=== PATIENT | female | born 2000 | race Caucasian/White ===

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

== ENCOUNTER → 2020-11-04 13:54 | Outpatient (CLI) | payer BC, OTHER, SELFPAY ==
[2020-11-04 14:44] LABS: HCG,Quantitative 526 mIU/ml (0-5.42)
== END ==
PROVIDERS: Visit Provider Obstetrics & Gynecology
DX: Z34.90 Encounter for supervision of normal pregnancy, unspecified, unspecified trimester (principal)
CPT/HCPCS: 36415; 84702

== ENCOUNTER 2020-11-04 14:28 | Emergency (ER) | payer BC, OTHER, SELFPAY ==
[2020-11-04 14:29] VITALS: BP 130/78; PULSE 67; RESP 18; TEMP 36.8; O2SAT 97; BMI 25.3
--- NOTE | 2020-11-04 15:00 | HMH.EDPREG ---
ED Disposition Clinical Impression: Threatened miscarriage Disposition: Home, Self-Care Condition on Discharge: Good Instructions: DI for Threatened Additional Instructions: Follow-up with your mortgage loan underwriter for reevaluation within the next several days. Return to the emergency department if you saturate more than 2 pads per hour or develop fever, vomiting, severe abdominal pain, other acute new concerns. Maintain pelvic rest until cleared by mortgage loan underwriter. - Critical Care Critical Care Time: No Attestation: On 11/04/20, the high probability of a clinically significant, sudden or life threatening deterioration of the following system(s) required my full and direct attention, intervention and personal management. The time I documented below is in addition to time spent performing reported procedures but includes the following listed in this critical care notation. Medical Decision Making - Medical Records Medical records reviewed: Yes: I reviewed the patient's medical records. - Henrry Inquiry Pt receiving controlled substance: No Vital Signs: 11/04/20 14:29 Temperature 98.3 F Temperature Source Oral Pulse Rate [Right] 67 Respiratory Rate 18 Blood Pressure [Right Arm] 130/78 Blood Pressure Mean [Right Arm] 95 02 Sat by Pulse Oximetry 97 Oxygen Delivery Method Room Air Medical Decision Narrative: Patient with hCG below discriminatory zone, ultrasound would not be able to detect anything at this level. She has no abdominal pain, low suspicion for ectopic . Appropriate for further outpatient management and follow-up with OB. Patient agreeable to following up with her mortgage loan underwriter within the next several days for reevaluation. I did inform the patient that this unfortunately seems like this may be a threatened miscarriage with her very low hCG at 2-1/2 months . Encouraged to return if she develops any symptomology or if bleeding becomes significantly worse, saturating more than 2 pads per hour. Advised pelvic rest until cleared by OB. HPI - General Chief complaint: OB/Uterine Contractions Stated complaint: possible miscarriage Time Seen by Provider: 11/04/20 15:00 Mode of Arrival: Family Vehicle Limitations: No Limitations Description of Symptoms (Recalled from ER Triage Doc. by RN): Patient reports she is concerned she is having a possible miscarriage. Patient reports she is at least 4 weeks . Patient reports she has been spot bleeding in the last 24 hours. Patient denies the urge to push. Patient reports she had blood work at her OBGYN this AM but does not know the results. Patient denies N/V - History of Present Illness HPI Narrative: This is a 20-year-old female who presents to the emergency department for concerns of miscarriage. Patient's last period was August 16 through the . She started spotting yesterday and had some positive home test. She went to her primary care doctor's office today who ordered an hCG. Patient continued spotting, so presents here. We were able to obtain the results of the hCG which is 526. No abdominal pain, fevers, vomiting, urinary symptoms. No complications from her previous . : No Date of Last Menstrual Period: 08/08/20 - Related Data Para: 1 Allergies Allergy/AdvReac Type Severity Reaction Status Date / Time shrimp Allergy Severe Anaphylaxis Verified 10/20/20 14:49 povidone-iodine Allergy Unknown Unknown Verified 10/20/20 14:49 [From Betadine] allergy reaction soap [From Betadine] Allergy Unknown Unknown Verified 10/20/20 14:49 allergy reaction [facility] History - Hepatitis A Screen Drug use history?: No High risk sexual behaviors?: No History of sexually transmitted infection?: No Currently employed?: No Childcare worker?: No Do you have indoor plumbing?: Yes Do you have electricity?: Yes Attestation statement:: This patient has been screened for Hepatiti
[2020-11-04 15:15] VITALS: BP 118/71; PULSE 66; RESP 18; TEMP 36.8; O2SAT 98
== END 2020-11-04 15:24 | disposition home or self-care (01) ==
PROVIDERS: Emergency Provider Emergency Medicine; PCP Family Medicine
DX: O20.0 Threatened abortion (principal); F41.8 Other specified anxiety disorders; E03.9 Hypothyroidism, unspecified
CPT/HCPCS: 99281

== ENCOUNTER → 2020-11-06 14:05 | Outpatient (CLI) | payer BC, OTHER, SELFPAY ==
[2020-11-06 15:21] LABS: HCG,Quantitative 87 mIU/ml (0-5.42)
== END ==
PROVIDERS: PCP Family Medicine; Visit Provider Obstetrics & Gynecology
DX: Z34.90 Encounter for supervision of normal pregnancy, unspecified, unspecified trimester (principal)
CPT/HCPCS: 36415; 84702

== ENCOUNTER → 2020-11-11 14:26 | Outpatient (CLI) | payer BC, OTHER, SELFPAY ==
[2020-11-11 14:46] LABS: Basophils # 0.1 K/mm3 (0-0.2); Basophils % 0.9 % (0.1-2.0); Eosinophils # 0.2 K/mm3 (0.0-0.4); Eosinophils % 3.6 % (0.1-12.0); Hematocrit 42.1 % (37.0-47.0); Hemoglobin 14.3 g/dL (12.2-16.2); Lymphocytes # 1.9 K/mm3 (0.7-4.5); Mean Corpuscular HGB Conc 33.9 g/dL (31.8-35.4); Mean Corpuscular Hemoglobin 31.1 pg (27.0-31.2); Mean Corpuscular Volume 91.8 fl (81-99); Monocytes # 0.3 K/mm3 (0.1-1.0); Monocytes % 5.5 % (1.7-9.3); Neutrophils # 3.7 K/mm3 (1.8-7.8); Platelet Count 117 K/mm3 (142-424); Red Blood Count 4.59 M/mm3 (4.20-5.40); White Blood Count 6.2 K/mm3 (4.5-13.0)
[2020-11-11 15:18] LABS: Urine Pregnancy, HCG Qual. Negative (Negative)
[2020-11-11 16:16] LABS: Anion Gap 12.5 mEq/L (5-15); Blood Urea Nitrogen 9 mg/dl (7-17); Carbon Dioxide 26 mmol/L (22.0-30.0); Chloride 108 mmol/L (98-107); Estimated Glomerular Filt Rate 127 ml/min (>60); GFR (African American) 154 ML/MIN (>60); Glucose 84 mg/dl (74-100); Potassium 4.5 mmoL/L (3.5-5.1); Sodium 142 mmol/L (136-145)
== END ==
PROVIDERS: Visit Provider Surgery
DX: Z01.812 Encounter for preprocedural laboratory examination (principal); Z11.52 Encounter for screening for COVID-19; L02.214 Cutaneous abscess of groin
CPT/HCPCS: 36415; 80048; 81025; 85025; U0003

== ENCOUNTER 2020-11-12 07:44 | Day surgery (SDC) | payer BC, OTHER, SELFPAY ==
[2020-11-09 10:57] VITALS: BMI 25.3
[2020-11-12] VITALS (9 sets, daily range): BP systolic 105–139; BP diastolic 60–79; PULSE 64–88; RESP 12–18; TEMP 36.2–37.1; O2SAT 95–100
--- NOTE | 2020-11-12 08:18 | P.PN_ITS ---
[facility] Anesthesia Checklist - Patient Identification Patient Identification: Arm Band - Structural Data Admitted From: Home Planned Operative Procedure/s: I&D Right Groin Cyst/Abscess Consent for Planned Operative Procedure(s) Verified: Yes Verified Documents: Surgical Consent, History and Physical - NPO Status Verified Time NPO: 00:00 - Additional verifications Anesthesia Reactions: No Hx Blood Transfusions: No Blood Transfusion Reaction: No - Airway Assessment C-Spine Mobility Assessed: Yes (mp2) TMJ Mobility Assessed: Yes Dentition: Good Dentition - Neurological Assessment Level of Consciousness: Awake, Alert - Anesthesia Plan Anesthesia Risk discussed: Yes Anesthesia Plan: Verified ASA Class: I Anesthesia Type: General [facility] History I have reviewed the patient's past medical history: Yes Medical History: Reports:: Anxiety, Depression Denies:: Cancer, Diabetes Mellitus Type 1, Diabetes Mellitus Type 2, Internal Pacemaker, MRSA, Seizures *Have you ever received a pneumonia vaccine?: No *Have you received a flu vaccine this season?: No Other Medical History: Reports: Hypothyroidism, Other. Denies: Blood Transfusion Reaction Anesthesia experience/problems:: nac Laterality Cases: Bilateral: Myringotomy (Ear Tubes), Tonsillectomy Other Surgeries: Yes: . No: Pacemaker Amputation: No Fractures: No - *Social History Last grade of school completed: High school graduate Smoking Status: Current every day smoker Tobacco Type: cigarettes # Packs/Day (cigarettes): 1 Alcohol Intake: never Alcohol Intake Frequency:: holidays/special occasions only Substance Use Type: marijuana *Occupational Status:: employed Housing: house Household Members: family *Travel in the last 8 weeks: None - Psychiatric History Pschychiatric History:: Reports:: Anxiety, Depression Family Hx:: Cancer, Hypertension, Stroke, Anemia, Asthma
--- NOTE | 2020-11-12 09:32 | HMH.OPNOTE ---
Date of procedure: 11/12/20 Pre-op Diagnosis:: Right groin abscess Post-op Diagnosis:: Same Procedure performed:: Incision and drainage/debridement of right groin abscess Surgeon:: Mainor Claros MD SOFTWARE DEVELOPER CONSULTANT:: Antonio Rose Anesthesia: LMA Estimated blood loss (mL): 10 Operative findings:: 4 small right groin abscess sites projecting through the shallow subcutaneous tissue Operative note:: After informed consent was obtained the patient was taken to the operating room and placed in the supine position. General anesthesia with laryngeal mask airway was achieved. Her right groin was prepped and draped in sterile fashion. After infiltration with local anesthetic small elliptical incisions were made around 4 small shallow abscess sites. The subcutaneous tissue was dissected with electrocautery. The underlying tissue was carefully debrided. Electrocautery was utilized to achieve hemostasis and the 4 small wounds were packed with dry gauze. She was transferred to recovery in stable condition after removal of her laryngeal mask airway. Condition: stable Disposition: PACU Specimens:: None Complications:: No immediate
--- NOTE | 2020-11-12 09:41 | HMH.ANESI ---
[facility] Anesthesia Record Part I Intake, IV Amount: 1,200 Estimated blood loss (mL): 0 Urine output (mL): 0 Blood Products used (#): none Blood Pressure: 139/79 SaO2: 95 Pulse Rate: 81 Respiratory Rate: 12 Temperature: 98.7 F Patient is:: Awake, Stable Stable to PACU at:: 09:40
[2020-11-17 07:19] VITALS: BP 120/63; PULSE 64; TEMP 37.1
--- NOTE | 2020-11-17 07:19 | P.PN_ITS ---
[facility] Anesthesia Record Part II Discharge Time: 10:10 Destination: Surgical Day Care (OP Surgery) PACU nurse assessment reviewed?: Yes Patient Condition:: Good Anesthesia Complications:: None Swallowing reflex intact?: Yes Cyanosis?: No Blood Pressure: 120/63 Pulse Rate: 64 Temperature: 98.7 F Mental Status: Alert & Oriented Pain level:: 0 Nausea and/or vomitting:: None Intake, IV Amount: 0
== END 2020-11-12 10:41 | disposition home or self-care (01) ==
LOC: OR 07:47
PROVIDERS: PCP Family Medicine; Visit Provider Surgery
PROC: (CPT 10061; principal; 2020-11-12 09:30)
DX: L02.214 Cutaneous abscess of groin (principal); F41.9 Anxiety disorder, unspecified; F32.9 Major depressive disorder, single episode, unspecified; E03.9 Hypothyroidism, unspecified; Z96.22 Myringotomy tube(s) status; Z80.9 Family history of malignant neoplasm, unspecified; Z82.49 Family history of ischemic heart disease and other diseases of the circulatory system; Z82.3 Family history of stroke; Z82.5 Family history of asthma and other chronic lower respiratory diseases
CPT/HCPCS: 10061; 96374; J2405

== ENCOUNTER 2021-07-04 01:31 | Emergency (ER) | payer OTHER, SELFPAY ==
[2021-07-04 01:39] VITALS: BP 138/77; PULSE 108; RESP 18; TEMP 36.8; O2SAT 100; BMI 23.5
--- NOTE | 2021-07-04 02:03 | HMH.EDGENADL ---
ED Disposition Clinical Impression: Cellulitis Disposition: Home, Self-Care Condition on Discharge: Fair Instructions: Cellulitis, DI for Skin Abscess Prescriptions: clindamycin HCL [Clindamycin HCl] 450 mg PO TID 5 Days #23 cap Transmission Status: Received by [id number] Referrals: Lavell Khanna MD [Primary Care Provider] - - Critical Care Critical Care Time: No Attestation: On , the high probability of a clinically significant, sudden or life threatening deterioration of the following system(s) required my full and direct attention, intervention and personal management. The time I documented below is in addition to time spent performing reported procedures but includes the following listed in this critical care notation. Medical Decision Making - Henrry Inquiry Pt receiving controlled substance: No Vital Signs: 07/04/21 01:39 Temperature 98.2 F Temperature Source Oral Pulse Rate [Right Brachial] 108 H Respiratory Rate 18 Blood Pressure [Right Arm] 138/77 Blood Pressure Mean [Right Arm] 97 Blood Pressure Source [Right Arm] Automatic Cuff Blood Pressure Position [Right Arm] Sitting 02 Sat by Pulse Oximetry 100 Oxygen Delivery Method Room Air Medical Decision Narrative: 20 yo female presents for evaluation of wounds after getting home tattoo on LUE. Neurovascularly intact. DDx includes but not limited to cellulitis, abscess, erysipelas. HDS, NAD, well appearing. No systemic symptoms of infection. Scant active drainage that is not clearly purulent. bedside ultrasound of wounds did not reveal large fluid collection of abscess. Likely cellulitis given erythema, tenderness, induration, hx of recent skin trauma with tattoo. Will rx clindamycin tid 5 days. Advised to f/u with PCP for reevaluation of wounds within 1 week. Given strict ED return precautions. General Adult HPI - General Chief complaint: Skin/Abscess/Foreign Body Stated complaint: ? infected tatoo on left arm Time Seen by Provider: 07/04/21 01:55 Mode of Arrival: Family Vehicle Limitations: No Limitations Description of Symptoms (Recalled from ER Triage Doc. by RN): left shoulder with multiple abscessed areas after she had a tattoo completed - History of Present Illness HPI narrative: 20 yo female w/ hx of recurrent boils presents for evaluation of wound check. Patient had tattoo done by anime artist in home environment (not in tattoo parlor) but with reported sterile materials approximately 1 week ago along her left shoulder and arm. She noticed wounds that were red and rounded and intermittently draining yellow or bloody drainage from them two days ago. Her friend told her to come to ED for evaluation. She states the wounds hurt. denies other wounds. States she has tried popping some of the wounds with resultant drainage. - Related Data Previous Rx's Medication Instructions Recorded clindamycin HCL [Clindamycin HCl] 450 mg PO TID 5 Days #23 cap 07/04/21 Allergies Allergy/AdvReac Type Severity Reaction Status Date / Time shrimp Allergy Severe Anaphylaxis Verified 12/08/20 14:11 povidone-iodine Allergy Unknown Unknown Verified 12/08/20 14:11 [From Betadine] allergy reaction soap [From Betadine] Allergy Unknown Unknown Verified 12/08/20 14:11 allergy reaction [facility] History - Hepatitis A Screen Drug use history?: No High risk sexual behaviors?: No History of sexually transmitted infection?: No Currently employed?: No Childcare worker?: No Do you have indoor plumbing?: Yes Do you have electricity?: Yes Attestation statement:: This patient has been screened for Hepatitis A risk factors. Medical History: Reports:: Anxiety, Depression Denies:: Cancer, Diabetes Mellitus Type 1, Diabetes Mellitus Type 2, Internal Pacemaker, MRSA, Seizures Other Medical History: Reports: Hypothyroidism, Other. Denies: Blood Transfusion Reaction Laterality Cases: Bilateral: Myringotomy (Ear Tubes), Tonsillectomy O
[2021-07-04 02:11] VITALS: BP 125/89; PULSE 76; RESP 16; TEMP 36.3; O2SAT 99
== END 2021-07-04 02:21 | disposition home or self-care (01) ==
PROVIDERS: Emergency Provider Student in an Organized Health Care Education/Training Program; PCP Family Medicine
DX: L03.114 Cellulitis of left upper limb (principal); L81.8 Other specified disorders of pigmentation; F41.8 Other specified anxiety disorders
CPT/HCPCS: 99283

== ENCOUNTER → 2022-05-04 16:05 | Outpatient (CLI) | payer BC, OTHER, SELFPAY ==
[2022-05-04 17:40] LABS: Basophils # 0.1 K/mm3 (0-0.2); Basophils % 0.6 % (0.1-2.0); Eosinophils # 0.3 K/mm3 (0.0-0.4); Eosinophils % 3.2 % (0.1-12.0); Hematocrit 44.1 % (37.0-47.0); Hemoglobin 14.5 g/dL (12.2-16.2); Lymphocytes # 2.3 K/mm3 (0.7-4.5); Lymphocytes % 25.5 % (10-50); Mean Corpuscular HGB Conc 32.8 g/dL (31.8-35.4); Mean Corpuscular Hemoglobin 31.1 pg (27.0-31.2); Mean Platelet Volume 11.5 fl (7.4-10.4); Monocytes # 0.5 K/mm3 (0.1-1.0); Monocytes % 4.9 % (1.7-9.3); Neutrophils % 65.7 % (37.0-80.0); Platelet Count 128 K/mm3 (142-424); Red Blood Count 4.65 M/mm3 (4.20-5.40); White Blood Count 9.1 K/mm3 (4.8-10.8)
[2022-05-06 08:20] LABS: Progesterone 0.6 ng/mL (.)
== END ==
PROVIDERS: PCP Family Medicine; Visit Provider Obstetrics & Gynecology
DX: N96 Recurrent pregnancy loss (principal); Z86.2 Personal history of diseases of the blood and blood-forming organs and certain disorders involving the immune mechanism
CPT/HCPCS: 36415; 84144; 85025

== ENCOUNTER 2022-11-25 21:35 | Emergency (ER) | payer BC, OTHER, SELFPAY ==
[2022-11-25 21:36] VITALS: BP 117/71; PULSE 110; RESP 17; TEMP 38.3; O2SAT 96; BMI 23.5
--- NOTE | 2022-11-25 21:47 | HMH.EDGENADL ---
Discharge Plan Disposition Patient Disposition: Home, Self-Care Prescriptions Prescriptions: New promethazine 12.5 mg suppository 12.5 mg AR TID PRN (Reason: nausea and vomiting) Qty: 12 0RF Rx Instructions: do not give 3rd daily dose after evening meal or within 4hr before bed ondansetron 4 mg tablet,disintegrating 4 mg PO Q6H PRN (Reason: nausea and vomiting) 5 Days Qty: 20 0RF Referrals Follow up/Referrals: Lavell Khanna MD [Primary Care Provider] - See instructions Jemma Vila MD [Staff Physician] - See instructions (follow up for thrombocytopenia) Activity Restrictions/Add. Instructions Additional Instructions/Restrictions: Return with inability to keep fluids down worsening abdominal pain high fevers that are not being broken with Tylenol or ibuprofen or other concerns. Please follow-up with Dr. Vila regarding your chronic thrombocytopenia which is low platelets and return with any spontaneous bleeding that will not resolve with pressure. Clinical Impressions Clinical Impression: Acute viral syndrome, Nausea vomiting and diarrhea, Cough, Thrombocytopenia Stand Alone Forms Stand Alone Forms: Work/School Release Discharge ED Provider: Opal Sylvester General Adult HPI General Chief complaint: Fever Stated complaint: JONES, body ache, fever, vomit Time Seen by Provider: 11/25/22 21:38 Mode of Arrival: Ambulatory Source of Information: Patient Limitations: No Limitations Description of Symptoms (Recalled from ER Triage Doc. by RN): 22 F presents with 1 week of flu-like symptoms with vomiting, diarrhea, and productive cough. Patient reports fever of 101-102 at home which she has taken a couple of Tylenol for. Patient reports being seen with dJ DELGADO at her PCP's office yesterday. Swabbed negative for Covid and Flu, and prescribed non-ds Zofran without relief. History of Present Illness HPI narrative: 22-year-old female here with nausea vomiting diarrhea and cough. Has had a fever for almost 5 days. Was recently at her primary care doctor's office and was negative for COVID and flu was given a prescription of Zofran tablets not the disintegrating form and is continue to have nausea vomiting at home. She states she just wants to feel better. No throat pain ear pain rash etc. No urinary symptoms as well. Related Data Previous Rx's Medication Instructions Recorded ondansetron 4 mg disintegrating 4 mg PO Q6H PRN nausea and 11/25/22 tablet vomiting 5 days #20 tabs promethazine 12.5 mg rectal 12.5 mg AR TID PRN nausea and 11/25/22 suppository vomiting #12 ea Allergies Allergy/AdvReac Type Severity Reaction Status Date / Time shrimp Allergy Severe Anaphylaxis Verified 04/28/22 10:30 povidone-iodine Allergy Unknown Unknown Verified 04/28/22 10:30 [From Betadine] allergy reaction soap [From Betadine] Allergy Unknown Unknown Verified 04/28/22 10:30 allergy reaction PFSH PFSH Disclaimer: The information contained in this section may have been updated after the patient was seen, as this information can be updated by other users. 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
[2022-11-25 22:00] VITALS: BP 108/58; PULSE 95; O2SAT 97
[2022-11-25 22:02] LABS: Basophils % 0.1 % (0.1-2.0); Eosinophils # 0.1 K/mm3 (0.0-0.4); Eosinophils % 0.3 % (0.1-12.0); Lymphocytes # 0.8 K/mm3 (0.7-4.5); Lymphocytes % 4.7 % (10-50); Mean Corpuscular HGB Conc 32.6 g/dL (31.8-35.4); Mean Corpuscular Hemoglobin 30.1 pg (27.0-31.2); Mean Corpuscular Volume 92.4 fl (81-99); Mean Platelet Volume 10.9 fl (7.4-10.4); Monocytes # 0.8 K/mm3 (0.1-1.0); Neutrophils # 14.5 K/mm3 (1.8-7.8); Neutrophils % 89.8 % (37.0-80.0); Platelet Count 93 K/mm3 (142-424); Red Blood Count 4.65 M/mm3 (4.20-5.40); Red Cell Distribution Width 12.7 % (11.5-17.5); White Blood Count 16.2 K/mm3 (4.8-10.8)
[2022-11-25 22:09] LABS: MANUAL DIFFERENTIAL MANUAL DIFFERENTIAL (MANUAL DIFF)
[2022-11-25 22:10] LABS: Chloride 106 mmol/L (98-107)
[2022-11-25 22:11] LABS: Potassium 3.8 mmoL/L (3.5-5.1); Sodium 135 mmol/L (136-145)
[2022-11-25 22:13] LABS: Alanine Aminotransferase 18 U/L (12-78); Alkaline Phosphatase 59 U/L (38-126); Anion Gap 11.8 mEq/L (5-15); Aspartate Amino Transferase 20 U/L (14-36); Bilirubin,Total 0.6 mg/dl (0.2-1.3); Blood Urea Nitrogen 10 mg/dl (7-17); Carbon Dioxide 21 mmol/L (22.0-30.0); Creatinine Clearance Estimated 158 mL/min (50-200); Estimated Glomerular Filt Rate 125 ml/min (>60); GFR (African American) 151 ML/MIN (>60); Lipase 33 U/L (23-300)
[2022-11-25 22:14] LABS: Albumin Level 3.6 g/dl (3.5-5.0); Albumin/Globulin Ratio 1.1 (1.1-1.8); Calcium 9.1 mg/dl (8.4-10.2); Globulin 3.3 g/dL (1.3-3.2); Glucose 133 mg/dl (74-100); Total Protein,Serum 6.9 g/dl (6.3-8.2)
--- NOTE | 2022-11-25 22:28 | PC.NURSE ---
in room talking with patient at this time.
[2022-11-25 22:38] LABS: HCG Qualitative, Serum Negative (Negative)
[2022-11-25 22:39] LABS: Lymphocytes % 9 % (10-50); Monocytes % 1 % (2-9); Neutrophils % 90 % (42-76); RBC Morphology Normal; Total Cells Counted 100
[2022-11-25 22:40] LABS: Platelet Estimate Moderate Decrease
--- NOTE | 2022-11-25 22:46 | PC.NURSE ---
Rounded on patient, no concerns at this time.
[2022-11-25 22:49] VITALS: BP 128/61; PULSE 87; RESP 17; TEMP 37.1; O2SAT 98
== END 2022-11-25 22:53 | disposition home or self-care (01) ==
PROVIDERS: Emergency Provider Student in an Organized Health Care Education/Training Program; PCP Family Medicine
DX: R51.9 Headache, unspecified (principal); R50.9 Fever, unspecified; R11.2 Nausea with vomiting, unspecified; R19.7 Diarrhea, unspecified; D69.6 Thrombocytopenia, unspecified; B34.9 Viral infection, unspecified; F17.210 Nicotine dependence, cigarettes, uncomplicated; R00.0 Tachycardia, unspecified
CPT/HCPCS: 80053; 83690; 84703; 85007; 85025; 96361; 96374; 96375; 99285; J0131; J2405

== ENCOUNTER → 2023-01-12 09:52 | Outpatient (CLI) | payer BC, OTHER, SELFPAY ==
[2023-01-12 10:06] LABS: Basophils % 0.5 % (0.1-2.0); Eosinophils # 0.3 K/mm3 (0.0-0.4); Eosinophils % 3.9 % (0.1-12.0); Hemoglobin 14.4 g/dL (12.2-16.2); Lymphocytes % 24.9 % (10-50); Mean Corpuscular HGB Conc 34.3 g/dL (31.8-35.4); Mean Corpuscular Volume 96.3 fl (81-99); Mean Platelet Volume 10.7 fl (7.4-10.4); Monocytes # 0.3 K/mm3 (0.1-1.0); Monocytes % 3.8 % (1.7-9.3); Neutrophils # 5.3 K/mm3 (1.8-7.8); Platelet Count 129 K/mm3 (142-424); Red Blood Count 4.36 M/mm3 (4.20-5.40); Red Cell Distribution Width 13.5 % (11.5-17.5); White Blood Count 7.9 K/mm3 (4.8-10.8)
== END ==
PROVIDERS: PCP Family Medicine; Visit Provider Internal Medicine Medical Oncology
DX: D69.3 Immune thrombocytopenic purpura (principal)
CPT/HCPCS: 36415; 85025

== ENCOUNTER 2023-01-27 21:28 | Emergency (ER) | payer BC, OTHER, SELFPAY ==
[2023-01-27 21:55] VITALS: BP 132/70; PULSE 105; RESP 14; TEMP 38.3; O2SAT 98; BMI 25.0
[2023-01-27 22:00] VITALS: BP 112/65; PULSE 99; O2SAT 97
[2023-01-27 22:21] LABS: Microscopic, Urine URINE MICROSCOPIC (MICROSCOPIC)
[2023-01-27 22:24] LABS: Basophils % 0.3 % (0.1-2.0); Eosinophils # 0.1 K/mm3 (0.0-0.4); Eosinophils % 0.7 % (0.1-12.0); Hematocrit 40.4 % (37.0-47.0); Hemoglobin 14.4 g/dL (12.2-16.2); Lymphocytes # 1.8 K/mm3 (0.7-4.5); Mean Corpuscular HGB Conc 35.7 g/dL (31.8-35.4); Mean Corpuscular Hemoglobin 32.9 pg (27.0-31.2); Mean Corpuscular Volume 92.3 fl (81-99); Monocytes # 0.9 K/mm3 (0.1-1.0); Monocytes % 6.8 % (1.7-9.3); Neutrophils # 10.9 K/mm3 (1.8-7.8); Neutrophils % 79.2 % (37.0-80.0); Platelet Count 94 K/mm3 (142-424); Red Blood Count 4.38 M/mm3 (4.20-5.40); Red Cell Distribution Width 13.2 % (11.5-17.5); White Blood Count 13.7 K/mm3 (4.8-10.8)
[2023-01-27 22:26] LABS: Appearance,Urine CLEAR (Clear); Blood, Urine 2+ (Negative); Color,Urine YELLOW (Yellow); Glucose,Urine (UA) Negative (Negative); Ketones,Urine 1+ (Negative); Leukocyte Esterase,Urine 1+ (Negative); Nitrate,Urine Negative (Negative); PH,Urine 6.5 (5.0-8.5); Protein,Urine 2+ (Negative); Urobilinogen,Urine >=8.0 EU/dl (0.2)
[2023-01-27 22:27] LABS: Urine Pregnancy, HCG Qual. Negative (Negative)
[2023-01-27 22:30] LABS: Chloride 102 mmol/L (98-107); Sodium 132 mmol/L (136-145)
[2023-01-27 22:31] LABS: Potassium 3.5 mmoL/L (3.5-5.1)
[2023-01-27 22:32] LABS: Bilirubin,Urine 1+ (Negative)
[2023-01-27 22:33] LABS: Alanine Aminotransferase 12 U/L (12-78); Albumin Level 4.1 g/dl (3.5-5.0); Albumin/Globulin Ratio 1.3 (1.1-1.8); Alkaline Phosphatase 51 U/L (38-126); Anion Gap 11.5 mEq/L (5-15); Aspartate Amino Transferase 20 U/L (14-36); Bilirubin,Total 0.7 mg/dl (0.2-1.3); Blood Urea Nitrogen 5 mg/dl (7-17); Carbon Dioxide 22 mmol/L (22.0-30.0); Creatinine Clearance Estimated 169 mL/min (50-200); Estimated Glomerular Filt Rate 125 ml/min (>60); GFR (African American) 151 ML/MIN (>60); Globulin 3.2 g/dL (1.3-3.2); Total Protein,Serum 7.3 g/dl (6.3-8.2)
[2023-01-27 22:34] LABS: Calcium 8.5 mg/dl (8.4-10.2); Glucose 123 mg/dl (74-100)
[2023-01-27 22:58] LABS: Bacteria,Urine 1+ /lpf; Squamous Epithelial Cell,Urine Occasional #/hpf (0-5); Yeast,Urine Occasional /lpf
[2023-01-27 23:24] LABS: Coronavirus 19, PCR Not Detected (NotDetected); Influenza A, PCR Not Detected (NotDetected); Influenza B, PCR Not Detected (NotDetected)
[2023-01-27 23:36] VITALS: BP 108/68; PULSE 91; RESP 16; TEMP 38.3; O2SAT 98
--- NOTE | 2023-01-28 01:16 | HMH.EDGENADL ---
Discharge Plan Disposition Patient Disposition: Home, Self-Care Condition: Good Prescriptions Prescriptions: New cefdinir 300 mg capsule 300 mg PO BID 10 Days Qty: 20 0RF ondansetron HCl 4 mg tablet 4 mg PO Q8H PRN (Reason: nausea and vomiting) 5 Days Qty: 14 0RF Referrals Follow up/Referrals: Lavell Khanna MD [Primary Care Provider] - See instructions Clinical Impressions Clinical Impression: Pyelonephritis Stand Alone Forms Stand Alone Forms: Work/School Release Discharge ED Provider: Morales El Adult HPI General Chief complaint: Fever Stated complaint: fever 102.3 muscle pain in back, blair, abd pain Time Seen by Provider: 01/27/23 22:45 Mode of Arrival: Family Vehicle Source of Information: Patient Limitations: No Limitations Description of Symptoms (Recalled from ER Triage Doc. by RN): 22 yo female presents with body aches to back/bilat legs, strong headache, fever, nausea accompanied by an episode of vomiting. 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 Last fever 102.3. Been treating with tylenol and ibuprofen. Denies dysuria, bowel movements. History of Present Illness HPI narrative: The patient presents with a chief complaint of fever, reaching a temperature of 102.3, accompanied by lower back pain, leg pain, migraine, and irritated eyes. The symptoms have been ongoing for approximately two days. The patient reports initially experiencing fever and headache, with shivering on the first night and feeling excessively hot on the second night. The patient describes the pain location in the middle of the lower back. They also report a sensation of their stomach feeling funny, but not painful. The patient works in retail and is constantly exposed to people, which may contribute to their illness. They deny any shortness of breath, coughing, runny nose, or neck pain. The patient has no known medical conditions, takes no regular medications, and has no known allergies to medications. They deny any numbness or tingling in their legs or groin area, and report recent vaginal discharge and pain on their sides, which started around the same time as their other symptoms. The patient denies any recreational drug use or intravenous drug use. The patient has a history of being prescribed antibiotics but has not taken them recently, as they forgot about the prescription. They have not taken any medications for their current symptoms. Related Data Previous Rx's Medication Instructions Recorded cefdinir 300 mg capsule 300 mg PO BID 10 days #20 caps 01/27/23 ondansetron HCl 4 mg tablet 4 mg PO Q8H PRN nausea and 01/27/23 vomiting 5 days #14 tabs Allergies Allergy/AdvReac Type Severity Reaction Status Date / Time shrimp Allergy Severe Anaphylaxis Verified 01/12/23 08:28 povidone-iodine Allergy Unknown Unknown Verified 01/12/23 08:28 [From Betadine] allergy reaction soap [From Betadine] Allergy Unknown Unknown Verified 01/12/23 08:28 allergy reaction PFSH PFSH Disclaimer: The information contained in this section may have been updated after the patient was seen, as this information can be updated by other users. 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
--- NOTE | 2023-02-01 16:27 | PC.NURSE ---
URINE CULTURE ON WORKLIST WITH ID/SENSITIVITY. NOTIFIED DR. LLAMAS, PT ON CEFDINIR, STATES NO FURTHER ACTION NEEDED.
== END 2023-01-27 23:48 | disposition home or self-care (01) ==
PROVIDERS: Emergency Provider Emergency Medicine; PCP Family Medicine
DX: N10 Acute pyelonephritis (principal); B96.29 Other Escherichia coli [E. coli] as the cause of diseases classified elsewhere; R50.9 Fever, unspecified; M54.59 Other low back pain; R51.9 Headache, unspecified; E87.1 Hypo-osmolality and hyponatremia; R10.9 Unspecified abdominal pain
CPT/HCPCS: 80053; 81001; 81025; 85025; 87086; 87636; 99284

== ENCOUNTER 2023-04-04 16:35 | Outpatient (CLI) | payer BC, OTHER, SELFPAY ==
[2023-04-04 18:14] LABS: HCG,Quantitative 37193 mIU/ml (0-5.42)
[2023-04-06 08:29] LABS: Progesterone 13.5 ng/mL (.)
== END 2023-04-04 23:59 ==
LOC: LAB 16:36
PROVIDERS: PCP Family Medicine; Visit Provider Obstetrics & Gynecology
DX: Z32.00 Encounter for pregnancy test, result unknown (principal)
CPT/HCPCS: 36415; 84144; 84702

== ENCOUNTER 2023-04-19 11:07 | Outpatient (CLI) | payer BC, OTHER, SELFPAY ==
[2023-04-19 12:04] LABS: Basophils % 0.8 % (0.1-2.0); Eosinophils # 0.1 K/mm3 (0.0-0.4); Hematocrit 41.1 % (37.0-47.0); Hemoglobin 13.8 g/dL (12.2-16.2); Lymphocytes # 1.4 K/mm3 (0.7-4.5); Mean Corpuscular HGB Conc 33.5 g/dL (31.8-35.4); Mean Corpuscular Hemoglobin 31.4 pg (27.0-31.2); Mean Corpuscular Volume 93.6 fl (81-99); Mean Platelet Volume 10.5 fl (7.4-10.4); Monocytes # 0.4 K/mm3 (0.1-1.0); Monocytes % 6.9 % (1.7-9.3); Neutrophils # 3.4 K/mm3 (1.8-7.8); Neutrophils % 63.3 % (37.0-80.0); Platelet Count 115 K/mm3 (142-424); Red Blood Count 4.39 M/mm3 (4.20-5.40); Red Cell Distribution Width 13.3 % (11.5-17.5); White Blood Count 5.3 K/mm3 (4.8-10.8)
[2023-04-20 11:36] LABS: Rapid Plasma Reagin Ab Titer Non Reactive titer (NonRea<1:1)
[2023-04-22 10:28] LABS: HIV Screen 4th Generation wRfx Non Reactive; Hepatitis B Surface Antigen Negative; Hepatitis C Antibody Non Reactive
[2023-04-22 10:29] LABS: Rubella Antibodies, IgG <0.90
== END 2023-04-19 23:59 ==
PROVIDERS: PCP Family Medicine; Visit Provider Obstetrics & Gynecology
DX: Z34.92 Encounter for supervision of normal pregnancy, unspecified, second trimester (principal); Z3A.14 14 weeks gestation of pregnancy
CPT/HCPCS: 36415; 85025; 86593; 86703; 86762; 86850; 87086; 87340; 87380; G0432

== ENCOUNTER 2023-04-20 14:46 | Outpatient (CLI) | payer BC, OTHER, SELFPAY ==
--- NOTE | 2023-04-20 14:51 | US_ITS ---
PROCEDURE: US OB <= 14 WEEKS FETUS CLINICAL INDICATION: US OB Before 14 wks for DATES COMPARISON: No exams were available for comparison FINDINGS: Transvaginal sonographic images of the pelvis were obtained. From her last menstrual period she is 10weeks 3days. An intrauterine gestational sac is present with a pole with a crown-rump length of 2.48cm This correlates to a gestational age of 9weeks 2days. heart tones are present with an FHR of 176bpm. Yolk sac is noted. The yolk sac measures 5.8mm. There appears to be a small subchorionic hemorrhage adjacent to the amnion. The right ovary is seen and appears normal. There appears to be a corpus luteum in the right ovary. The left ovary is seen and appears normal. There is no fluid in the cul-de-sac. IMPRESSION: 1. Viable fetus within the uterine cavity. There is heart rate activity. 2. Fetus measures 9 weeks 2 days. 3. Both ovaries are seen and appear to be normal. 4. The dates are off by 1 week and her due date should be revised to reflect this. Her VAL will be 11/21/2023. 5. A small subchorionic hemorrhage is seen. Dictated by: Vladislav Osman MD 04/21/2023 12:52 Vladislav Osman MD in [facility] 04/21/2023 12:52
== END 2023-04-20 23:59 ==
LOC: RAD 14:47
PROVIDERS: PCP Family Medicine; Visit Provider Obstetrics & Gynecology
DX: Z34.91 Encounter for supervision of normal pregnancy, unspecified, first trimester (principal); Z3A.14 14 weeks gestation of pregnancy
CPT/HCPCS: 76801

== ENCOUNTER 2023-06-21 11:57 | Outpatient (CLI) | payer BC, OTHER, SELFPAY ==
[2023-06-21 12:18] LABS: Basophils % 0.4 % (0.1-2.0); Eosinophils # 0.2 K/mm3 (0.0-0.4); Eosinophils % 2.5 % (0.1-12.0); Hematocrit 41.9 % (37.0-47.0); Hemoglobin 14.1 g/dL (12.2-16.2); Lymphocytes # 1.4 K/mm3 (0.7-4.5); Lymphocytes % 20.1 % (10-50); Mean Corpuscular HGB Conc 33.8 g/dL (31.8-35.4); Mean Corpuscular Hemoglobin 32.7 pg (27.0-31.2); Mean Corpuscular Volume 96.7 fl (81-99); Mean Platelet Volume 9.3 fl (7.4-10.4); Monocytes # 0.3 K/mm3 (0.1-1.0); Monocytes % 4.3 % (1.7-9.3); Neutrophils # 5.2 K/mm3 (1.8-7.8); Neutrophils % 72.6 % (37.0-80.0); Platelet Count 115 K/mm3 (142-424); Red Blood Count 4.33 M/mm3 (4.20-5.40); Red Cell Distribution Width 12.9 % (11.5-17.5); White Blood Count 7.1 K/mm3 (4.8-10.8)
== END 2023-06-21 23:59 ==
LOC: LAB 11:58
PROVIDERS: PCP Family Medicine; Visit Provider Obstetrics & Gynecology
DX: O26.892 Other specified pregnancy related conditions, second trimester (principal); Z3A.18 18 weeks gestation of pregnancy
CPT/HCPCS: 36415; 85025

== ENCOUNTER 2023-07-09 13:05 | Outpatient (CLI) | payer BC, OTHER, SELFPAY ==
--- NOTE | 2023-07-09 13:05 | US_ITS ---
PROCEDURE: US OB /MATERNAL DETAIL CLINICAL INDICATION: 20 week + Anatomy Scan-OB Complete COMPARISON: No exams were available for comparison FINDINGS: Transabdominal sonographic images of the pelvis were obtained. From her established due date she is 20 weeks 5 days. Single viable intrauterine gestation. Cephalic position. Placenta: Anteriorplacenta grade 1. There is an average amount of fluid. The cervix appears satisfactory. Closed and measuring 4.1 cm in length. Complete survey performed and was unremarkable on the submitted images as in PACS. No discrete anomalies identified on survey imaging by technologist. Active fetus. Three-vessel cord with satisfactory umbilical cord insertion. 4- chamber heart noted. Situs, aortic arch, LVOT, RVOT, three-vessel view appear normal. Survey of brain & ventricles Unremarkable. Cerebellum, thalamus, choroid plexus, cisterna magna appear normal. Face and neck survey unremarkable. Profile, nasion, lips and nose appeared normal. Diaphragm and chest views unremarkable. Abdomen: Both kidneys noted and unremarkable. Stomach and bladder noted and satisfactory. Spine: Survey of the spine satisfactory with no anomalies identified nor imaged. Cervical, thoracic, lower spine appear normal. Both arms and legs noted. Amniotic Fluid: Adequate. Measurements: Average ultrasound age 20weeks 4days. Estimated due date by ultrasound age 0811/22/2023. Estimated weight 358g BPD = 20weeks 2days HC = 20weeks 5days AC = 20weeks 2days FL = 20weeks 6days Growth Percentile= 33 Heart Rate = 138bpm Cerebellum = 20weeks 3days Humerus = 20weeks 6days HC/AC is 1.22 FL/BPD is 0.74 FL/AC is 0.23 IMPRESSION: 1. Viable fetus in the cephalic presentation with an anterior placenta grade 1. 2. The fluid is within normal limits. 3. Anatomical scan appears normal. 4. biometry is consistent with the dates. Dictated by: Vladislav Osman MD 07/09/2023 19:02 Vladislav Osman MD in [facility] 07/09/2023 19:02
== END 2023-07-09 23:59 | disposition home or self-care (01) ==
LOC: RAD 13:05
PROVIDERS: PCP Family Medicine; Visit Provider Obstetrics & Gynecology
DX: O26.892 Other specified pregnancy related conditions, second trimester (principal); Z3A.20 20 weeks gestation of pregnancy; Z36.3 Encounter for antenatal screening for malformations; N96 Recurrent pregnancy loss
CPT/HCPCS: 76811

== ENCOUNTER 2023-07-26 16:58 | Outpatient (CLI) | payer BC, OTHER, SELFPAY | END 2023-07-26 23:59 | disposition home or self-care (01) | LOC: LAB.DROPOF 16:59 | PROVIDERS: PCP Obstetrics & Gynecology; Visit Provider Obstetrics & Gynecology | DX: O23.42 Unspecified infection of urinary tract in pregnancy, second trimester (principal); B96.29 Other Escherichia coli [E. coli] as the cause of diseases classified elsewhere | CPT/HCPCS: 87086 ==

== ENCOUNTER 2023-08-23 10:47 | Outpatient (CLI) | payer BC, OTHER, SELFPAY ==
[2023-08-23 11:27] LABS: Basophils % 0.4 % (0.1-2.0); Eosinophils # 0.3 K/mm3 (0.0-0.4); Eosinophils % 3.2 % (0.1-12.0); Hematocrit 39.1 % (37.0-47.0); Lymphocytes # 1.8 K/mm3 (0.7-4.5); Mean Corpuscular HGB Conc 33.4 g/dL (31.8-35.4); Mean Corpuscular Hemoglobin 31.7 pg (27.0-31.2); Mean Platelet Volume 10.3 fl (7.4-10.4); Monocytes # 0.3 K/mm3 (0.1-1.0); Monocytes % 3.4 % (1.7-9.3); Neutrophils # 7.1 K/mm3 (1.8-7.8); Neutrophils % 73.9 % (37.0-80.0); Platelet Count 128 K/mm3 (142-424); Red Blood Count 4.11 M/mm3 (4.20-5.40); Red Cell Distribution Width 13.1 % (11.5-17.5); White Blood Count 9.6 K/mm3 (4.8-10.8)
[2023-08-23 11:45] LABS: Glucose,Fasting 92 mg/dl (74-100)
[2023-08-23 13:30] LABS: Glucose 1 Hour 126 mg/dL (74-100)
== END 2023-08-23 23:59 | disposition home or self-care (01) ==
LOC: LAB 10:47
PROVIDERS: PCP Family Medicine; Visit Provider Obstetrics & Gynecology
DX: O26.892 Other specified pregnancy related conditions, second trimester (principal); Z3A.27 27 weeks gestation of pregnancy
CPT/HCPCS: 36415; 82951; 85025

== ENCOUNTER 2023-09-15 12:57 | Outpatient (CLI) | payer BC, OTHER, SELFPAY ==
[2023-09-15 13:10] VITALS: BP 134/72; PULSE 74; RESP 17; TEMP 37.2; O2SAT 99; BMI 26.4
[2023-09-15 13:40] LABS: Microscopic, Urine URINE MICROSCOPIC (MICROSCOPIC)
[2023-09-15] MEDS: LACTATED RINGERS 1000ML 1,000 ML 999 ML IV ×2 (13:45→16:02)
[2023-09-15 13:49] LABS: Bilirubin,Urine Negative (Negative); Blood, Urine 3+ (Negative); Glucose,Urine (UA) Negative (Negative); Ketones,Urine 3+ (Negative); Leukocyte Esterase,Urine 1+ (Negative); Nitrate,Urine Negative (Negative); PH,Urine 6.5 (5.0-8.5); Protein,Urine 3+ (Negative); Specific Gravity, Urine 1.025 (1.005-1.030); Urobilinogen,Urine 0.2 EU/dl (0.2)
[2023-09-15 13:57] LABS: Appearance,Urine Cloudy (Clear); Color,Urine Dark Yellow (Yellow)
[2023-09-15] MEDS: BETAMETHASONE ACET/PHOS 6MG/ML 5ML MDV 12 MG IM (14:05)
[2023-09-15 14:12] LABS: Amphetamine/Metha Screen,Urine Negative ng/ml (<1000)
[2023-09-15 14:13] LABS: Barbiturates Screen,Urine Negative ng/ml (<200); Benzodiazepines Screen,Urine Negative ng/ml (<200)
[2023-09-15 14:14] LABS: Cannabinoid Screen,Urine Positive ng/ml (<50)
[2023-09-15 14:15] LABS: Cocaine Screen,Urine Negative ng/ml (<300); Methadone Screen,Urine Negative ng/ml (<300)
[2023-09-15 14:16] LABS: Opiate Screen,Urine Negative ng/ml (<300)
[2023-09-15 14:17] LABS: Phencyclidine Screen,Urine Negative ng/ml (<25)
[2023-09-15 14:56] LABS: Fetal Fibronectin (Rapid) Negative (Negative)
[2023-09-15] MEDS: CEFTRIAXONE 1 GM 1 GM in 0.9 % SODIUM CHLORIDE 50 ML IV (15:25)
[2023-09-15] MEDS: ACETAMINOPHEN 500MG TAB 1000 MG PO (15:25)
== END 2023-09-15 17:15 | disposition home or self-care (01) ==
LOC: OBOUT 12:58 → OB 12:59
PROVIDERS: PCP Family Medicine; Visit Provider Obstetrics & Gynecology
DX: O23.43 Unspecified infection of urinary tract in pregnancy, third trimester (principal); N39.0 Urinary tract infection, site not specified; Z3A.30 30 weeks gestation of pregnancy
CPT/HCPCS: 80307; 81001; 82731; 87086; G0463; J0696; J0702; J7120

== ENCOUNTER 2023-09-16 14:11 | Outpatient (CLI) | payer BC, OTHER, SELFPAY ==
[2023-09-16 14:15] VITALS: BP 115/68; PULSE 92; RESP 18; TEMP 37.2; O2SAT 99; BMI 26.4
[2023-09-16] MEDS: BETAMETHASONE ACET/PHOS 6MG/ML 5ML MDV 12 MG IM (14:23)
== END 2023-09-16 14:31 | disposition home or self-care (01) ==
LOC: OBOUT 14:12 → OB 14:13
PROVIDERS: PCP Family Medicine; Visit Provider Obstetrics & Gynecology
DX: O23.43 Unspecified infection of urinary tract in pregnancy, third trimester (principal); N39.0 Urinary tract infection, site not specified; Z3A.30 30 weeks gestation of pregnancy
CPT/HCPCS: G0463; J0702

== ENCOUNTER 2023-11-02 10:51 | Outpatient (CLI) | payer BC, OTHER, SELFPAY ==
[2023-11-02 11:03] LABS: Basophils # 0.1 K/mm3 (0-0.2); Basophils % 0.6 % (0.1-2.0); Eosinophils # 0.3 K/mm3 (0.0-0.4); Eosinophils % 3.6 % (0.1-12.0); Hematocrit 39.5 % (37.0-47.0); Hemoglobin 12.9 g/dL (12.2-16.2); Lymphocytes # 1.9 K/mm3 (0.7-4.5); Mean Corpuscular HGB Conc 32.8 g/dL (31.8-35.4); Mean Corpuscular Hemoglobin 32.1 pg (27.0-31.2); Mean Corpuscular Volume 98.1 fl (81-99); Mean Platelet Volume 10.8 fl (7.4-10.4); Monocytes # 0.4 K/mm3 (0.1-1.0); Neutrophils # 6.8 K/mm3 (1.8-7.8); Neutrophils % 71.8 % (37.0-80.0); Platelet Count 111 K/mm3 (142-424); Red Blood Count 4.02 M/mm3 (4.20-5.40); Red Cell Distribution Width 13.3 % (11.5-17.5); White Blood Count 9.4 K/mm3 (4.8-10.8)
== END 2023-11-02 23:59 | disposition home or self-care (01) ==
LOC: LAB 10:52
PROVIDERS: Obstetrics & Gynecology; PCP Family Medicine; Visit Provider Obstetrics & Gynecology
DX: D69.6 Thrombocytopenia, unspecified (principal); Z34.90 Encounter for supervision of normal pregnancy, unspecified, unspecified trimester
CPT/HCPCS: 36415; 85025; 86403

== ENCOUNTER 2023-11-05 13:04 | Outpatient (CLI) | payer BC, OTHER, SELFPAY ==
--- NOTE | 2023-11-05 13:05 | US_ITS ---
PROCEDURE: US OB BIOPHYSICAL PROFILE CLINICAL INDICATION: sga COMPARISON: US US OB <= 14 WEEKS FETUS from 04/20/2023 US US OB /MATERNAL DETAIL from 07/09/2023 FINDINGS: Transabdominal sonographic images of the uterus were obtained. From her established due date she is 37weeks 5days. The following parameters are obtained: Viable Fetus in the cephalic presentation with and anterior placenta grade 3. There is a placental Lozada. Average ultrasound age is 36weeks 4days Estimated weight 2,998g, 6 lb 10 oz. Cervix measures 2.9 cm. Measurements: heart Rate = 144bpm BPD = 36weeks 0 days, 22 percentile HC = 36weeks 4days, 9 percentile AC = 37weeks 1day, 49 percentile FL = 36weeks 1day, 15 percentile HC/AC is 0.97 FL/BPD is 0.79 FL/AC is 0.21 33 percentile Amniotic fluid index: 14.23cm, MVP 4.51 cm. Qualitative AFV:2 Breathing movements: 2 Gross Body Movements: 2 Tone: 2 Biophysical profile score: 8 Doppler evaluation of the umbilical artery: SD ratio: 2.08-2.73 Resistive index: 0.52 No obvious anomalies evident.Kidneys, bladder, stomach, four-chamber heart, three-vessel cord appear normal. IMPRESSION: 1. Viable fetus in the cephalic presentation with an anterior placenta grade 3. There is a placental Lozada. There are significant calcifications within the placenta. 2. The fluid is within normal limits with amniotic fluid index of 14.23 cm, MVP 4.51 cm. 3. Biophysical profile is 8/8 with good breathing movement and movement seen. 4. SD ratio is normal 2.08-2.73. 5. There has been good interval growth with the fetus currently 33rd percentile. 6. Limited anatomical scan appears normal. Dictated by: Vladislav Osman MD 11/05/2023 14:12 Vladislav Osman MD in [facility] 11/05/2023 14:12
== END 2023-11-05 23:59 | disposition home or self-care (01) ==
LOC: RAD 13:05
PROVIDERS: PCP Family Medicine; Visit Provider Obstetrics & Gynecology
DX: O36.5990 Maternal care for other known or suspected poor fetal growth, unspecified trimester, not applicable or unspecified (principal); O28.8 Other abnormal findings on antenatal screening of mother
CPT/HCPCS: 76816; 76819; 76820

== ENCOUNTER 2023-11-14 05:47 | Inpatient (IN) | payer BC, OTHER, SELFPAY ==
[2023-11-14] VITALS (7 sets, daily range): BP systolic 96–117; BP diastolic 53–68; PULSE 53–84; RESP 14–20; TEMP 36.3–36.9; O2SAT 96–98; BMI 28.8
[2023-11-14 06:25] LABS: Appearance,Urine CLEAR (Clear); Bilirubin,Urine Negative (Negative); Blood, Urine Negative (Negative); Color,Urine YELLOW (Yellow); Glucose,Urine (UA) Negative (Negative); Ketones,Urine Negative (Negative); Leukocyte Esterase,Urine Negative (Negative); Nitrate,Urine Negative (Negative); Protein,Urine Negative (Negative); Specific Gravity, Urine 1.025 (1.005-1.030); Urobilinogen,Urine 0.2 EU/dl (0.2)
[2023-11-14 06:29] LABS: Microscopic, Urine URINE MICROSCOPIC (MICROSCOPIC)
[2023-11-14 06:30] LABS: WBC,Urine Occasional #/hpf (0-3)
[2023-11-14 06:31] LABS: Albumin Level 3.6 g/dl (3.5-5.0); Calcium Oxalate Crystals,Urine Trace /lpf; Chloride 114 mmol/L (98-107); Potassium 4.2 mmoL/L (3.5-5.1); Sodium 136 mmol/L (136-145)
[2023-11-14 06:34] LABS: Alanine Aminotransferase 12 U/L (12-78); Albumin/Globulin Ratio 1.2 (1.1-1.8); Alkaline Phosphatase 151 U/L (38-126); Anion Gap 8.2 mEq/L (5-15); Aspartate Amino Transferase 22 U/L (14-36); Bilirubin,Total 0.6 mg/dl (0.2-1.3); Blood Urea Nitrogen 8 mg/dl (7-17); Calcium 8.6 mg/dl (8.4-10.2); Carbon Dioxide 18 mmol/L (22.0-30.0); Estimated Glomerular Filt Rate 153 ml/min (>60); GFR (African American) 185 ML/MIN (>60); Glucose 82 mg/dl (74-100); Total Protein,Serum 6.6 g/dl (6.3-8.2)
[2023-11-14 06:39] LABS: Amphetamine/Metha Screen,Urine Negative ng/ml (<1000); Benzodiazepines Screen,Urine Negative ng/ml (<200)
[2023-11-14 06:40] LABS: Barbiturates Screen,Urine Negative ng/ml (<200)
[2023-11-14 06:41] LABS: Cannabinoid Screen,Urine Positive ng/ml (<50); Cocaine Screen,Urine Negative ng/ml (<300)
[2023-11-14 06:42] LABS: Methadone Screen,Urine Negative ng/ml (<300)
[2023-11-14 06:43] LABS: Opiate Screen,Urine Negative ng/ml (<300); Phencyclidine Screen,Urine Negative ng/ml (<25)
[2023-11-14 07:04] LABS: Basophils # 0.1 K/mm3 (0-0.2); Basophils % 0.8 % (0.1-2.0); Eosinophils # 0.2 K/mm3 (0.0-0.4); Eosinophils % 2.3 % (0.1-12.0); Hematocrit 41.2 % (37.0-47.0); Hemoglobin 13.6 g/dL (12.2-16.2); Lymphocytes % 19.7 % (10-50); Mean Corpuscular HGB Conc 32.9 g/dL (31.8-35.4); Mean Corpuscular Hemoglobin 31.4 pg (27.0-31.2); Mean Corpuscular Volume 95.5 fl (81-99); Mean Platelet Volume 11.4 fl (7.4-10.4); Monocytes # 0.5 K/mm3 (0.1-1.0); Monocytes % 4.5 % (1.7-9.3); Neutrophils # 7.5 K/mm3 (1.8-7.8); Neutrophils % 72.8 % (37.0-80.0); Platelet Count 135 K/mm3 (142-424); Red Blood Count 4.32 M/mm3 (4.20-5.40); Red Cell Distribution Width 14.1 % (11.5-17.5); White Blood Count 10.3 K/mm3 (4.8-10.8)
--- NOTE | 2023-11-14 08:28 | EXP.HP ---
History of Present Illness *Admission Date: 11/14/23 *Reason for visit:: section *History of present illness: Palma Vaughan is a 23-year-old at 39 weeks and 0 days gestation who presented to labor and delivery for scheduled . Her has been complicated by gestational thrombocytopenia, and a cystic fibrosis carrier. She has a history of a previous delivery and desires a repeat. On presentation patient endorsed good movement and denies any leakage of fluid or vaginal bleeding. A+, antibody negative, rubella nonimmune, hepatitis B negative, hepatitis C negative, RPR negative, HIV negative 1 hour GTT: 126 GBS negative PFSH PFSH Disclaimer: The information contained in this section may have been updated after the patient was seen, as this information can be updated by other users. Medical History Thrombocytopenia affecting , antepartum Increased ammonia level Recurrent loss History of thrombocytopenia Cystic fibrosis carrier 2184insA mutation; partner without insurance at this time Positive urine drug screen THC Surgical History History of section Family History Grandmother Stroke Grandfather Stroke Social History (Updated 11/14/23 @ 06:26 by Laurel Lagunas RN) Smoking Status: Current every day smoker tobacco type: cigarettes packs per day: 1 alcohol intake: never substance use type: denies use current occupational status: unemployed Travel in the last 8 weeks: None household members: family housing: house 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 Denies nausea, vomiting. Genitourinary: Denies dysuria and incontinence Musculoskeletal: Denies shoulder pain and back pain Neurological: Denies change in speech or headaches Meds Home Medications and Allergies Home Medications ?Medication ?Instructions ?Recorded ?Confirmed ?Type vits no.126-ferrous fum 1 tab PO DAILY #30 tabs 04/19/23 11/14/23 Rx 28 mg iron-folic acid 800 mcg tablet (Classic ) New Prescriptions to Start Prescriptions: Allergies Allergy/AdvReac Type Severity Reaction Status Date / Time shrimp Allergy Severe Anaphylaxis Verified 11/14/23 06:30 povidone-iodine Allergy Unknown Unknown Verified 11/14/23 06:30 [From Betadine] allergy reaction soap [From Betadine] Allergy Unknown Unknown Verified 11/14/23 06:30 allergy reaction Exam Data for Last 24 hours Vital signs and Labs for Last 24 Hours: Temp Pulse Resp BP Pulse Ox O2 Del Method 98.2 F 79 17 117/68 98 Room Air 11/14/23 06:20 11/14/23 06:20 11/14/23 06:20 11/14/23 06:20 11/14/23 06:20 11/14/23 06:20 Laboratory Results - last 24 hr 11/14/23 06:12: WBC 10.3, RBC 4.32, Hgb 13.6, Hct 41.2, MCV 95.5, MCH 31.4 H, MCHC 32.9, RDW 14.1, Plt Count 135 L, MPV 11.4 H, Neut % (Auto) 72.8, Lymph % (Auto) 19.7, [place] % (Auto) 4.5, Eos % (Auto) 2.3, Baso % (Auto) 0.8, Neut # (Auto) 7.5, Lymph # (Auto) 2.0, [place] # (Auto) 0.5, Eos # (Auto) 0.2, Baso # (Auto) 0.1, Sodium 136, Potassium 4.2, Chloride 114 H, Carbon Dioxide 18 L, Anion Gap 8.2, BUN 8, Creatinine 0.50 L, Estimated GFR 153, Est GFR ( Amer) 185, Glucose 82, Calcium 8.6, Total Bilirubin 0.6, AST 22, ALT 12, Alkaline Phosphatase 151 H, Total Protein 6.6, Albumin 3.6
--- NOTE | 2023-11-14 08:38 | EXP.OP.NOTE ---
Date of procedure: 11/14/23 Pre-op Diagnosis:: 1. 39 weeks 0days gestation, Mata 2. Gestational thrombocytopenia 3. Previous delivery, desires repeat 4. Cystic fibrosis carrier 5. GBS negative 6. Rh Positive Post-op Diagnosis:: 1. 39 weeks 0days gestation, Mata 2. Gestational thrombocytopenia 3. Previous delivery, desires repeat 4. Cystic fibrosis carrier 5. GBS negative 6. Rh Positive Procedure performed:: Repeat Delivery Surgeon:: Trupti Mcgraw DO Sleeve Fixer(s):: Andrea Morales DO DESIZING PAD OPERATOR:: Antonio Rose Anesthesia: spinal Estimated blood loss (mL): 500 Operative findings:: 1. Live viable female infant: Opal Li. Weight: 7 pounds 0 ounces. Apgars 8 and 9 at 1 and 5 minutes respectively 2. Normal-appearing fallopian tubes and ovaries bilaterally Operative note:: Medications: 2 g of Ancef Summary: Procedure explained in its entirety. The patient was counseled on the risks and benefits of section including bleeding, vascular injury, infection, and injury to the surrounding structures. Hemorrhage requiring life saving blood transfusion resulting in blood born viral infection or allergic reaction was explained and the patient consented to blood transfusion. Possible need for further operative measures prolonging recovery time and hospitalization reviewed to include hysterectomy. Procedure explained in its entirety and patient had no further questions. Consented to procedure. The patient was taken back to the operating room where adequate spinal anesthesia was obtained. Pneumatic compression stockings applied to lower extremities. Ancef 2g was given for infection prophylaxis. She was placed in the dorsal supine position Urinary catheter was placed and found to be draining clear urine. The patient was prepped and draped in sterile fashion. Anesthesia was tested and and found to be adequate. A Pfannenstiel skin incision was made with the scalpel. Subcutaneous bleeding vessels were cauterized with the bovie. The incision was taken down to the fascia with the bovie. The fascia was knicked in the midline and sharply extended laterally. The superior aspect of the fascia was grasped with Jn clamps and the rectus muscle was taken down with the Bovie. The rectus muscle was sharply dissected from the midline with Mayos. This process was repeated inferiorly. The rectus muscles were in the midline, peritoneum was identified and entered bluntly. Dat O retractor was placed and the bladder was noted to be out of the operative field. A bladder flap was created with Metzenbaum scissors and Citizen [place] pickups. The lower uterine segment was easily identified, sharply incised, and entered bluntly with the surgeon's index finger. Incision was then extended in a superior and inferior fashion by blunt separation. Membranes were ruptured revealing clear fluid. The fetus was in cephalic presentation. The head was carefully elevated out of the pelvis. Fundal pressure was applied when head was brought into incision. The infants head was delivered without difficulty. The shoulder and body followed without complication. Delivery occurred at 0754. The mouth and nose were suctioned with a bulb. The umbilical cord was clamped and cut. Infant was taken to warmer for evaluation by the top knitter. Cord blood was collected. The placenta was delivered via fundal massage and found to be normal. IV Pitocin was initiated. Inside of the uterus was gently cleared of blood and clots with lap sponge. The hysterotomy was closed with #1 Vicryl in a running locked fashion. The lower uterine segment was visualized and noted to be hemostatic. The vesicouterine peritoneum was reapproximated with 2-0 Monocryl in a running locked fashion. The ovaries and tubes were found to be normal. The posterior aspect of the uterus was cleared of blood clot with a damp lap sponge. The gutters were inspected bilaterally and cleare
--- NOTE | 2023-11-14 08:40 | EXP.ANES.CKL ---
[facility] Disclaimer: The information contained in this section may have been updated after the patient was seen, as this information can be updated by other users. Medical History Thrombocytopenia affecting , antepartum Increased ammonia level Recurrent loss History of thrombocytopenia Cystic fibrosis carrier 2184insA mutation; partner without insurance at this time Positive urine drug screen THC Surgical History History of section Family History Grandmother Stroke Grandfather Stroke Social History (Updated 11/14/23 @ 06:26 by Laurel Lagunas RN) Smoking Status: Current every day smoker tobacco type: cigarettes packs per day: 1 alcohol intake: never substance use type: denies use current occupational status: unemployed Travel in the last 8 weeks: None household members: family housing: house 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: Yes do you feel safe at home: Yes victim of physical abuse: No victim of emotional abuse: No victim of sexual abuse: No [facility] Anesthesia Checklist Patient Identification Patient Identification: Verbal (Name & ) Structural Data Admitted From: Inpatient Planned Operative Procedure/s: c/section Consent for Planned Operative Procedure(s) Verified: Yes NPO Status Verified Time NPO: 00:00 Additional verifications Anesthesia Reactions: No Hx Blood Transfusions: No Blood Transfusion Reaction: No Airway Assessment Mallampati Score:: Class II C-Spine Mobility Assessed: Yes TMJ Mobility Assessed: Yes Dentition: Good Dentition Neurological Assessment Level of Consciousness: Awake, Alert and Appropriate Anesthesia Plan Anesthesia Risk discussed: Yes Anesthesia Plan: Verified ASA Class: II Anesthesia Type: Spinal
--- NOTE | 2023-11-14 08:47 | EXP.ANES.I ---
[facility] Anesthesia Record Part I Anesthesia Record I Intake, IV Amount: 1,600 Hydration: Adequate Estimated blood loss (mL): 500 Urine output (mL): 300 Blood Pressure: 103/54 SaO2: 96 Pulse Rate: 63 Airway Patency: Patent Respiratory Rate: 14 Temperature: 97.5 F Patient is:: Awake and Stable Stable to PACU at:: 08:35
[2023-11-14 09:12] LABS: Appearance,Urine CLEAR (Clear); Bilirubin,Urine Negative (Negative); Blood, Urine Negative (Negative); Color,Urine YELLOW (Yellow); Glucose,Urine (UA) Negative (Negative); Ketones,Urine Negative (Negative); Leukocyte Esterase,Urine Negative (Negative); Nitrate,Urine Negative (Negative); PH,Urine 6.5 (5.0-8.5); Protein,Urine Negative (Negative); Urobilinogen,Urine 0.2 EU/dl (0.2)
[2023-11-14 09:50] LABS: Bacteria,Urine Trace /lpf; Microscopic, Urine URINE MICROSCOPIC (MICROSCOPIC); WBC,Urine Occasional #/hpf (0-3)
[2023-11-15 05:05] VITALS: BP 98/53; PULSE 58; RESP 17; TEMP 36.8; O2SAT 98
[2023-11-15 06:34] LABS: Basophils % 0.5 % (0.1-2.0); Mean Corpuscular HGB Conc 31.8 g/dL (31.8-35.4); Monocytes # 0.4 K/mm3 (0.1-1.0)
[2023-11-15 06:47] LABS: Eosinophils # 0.3 K/mm3 (0.0-0.4); Eosinophils % 3.1 % (0.1-12.0); Hematocrit 35.6 % (37.0-47.0); Lymphocytes # 2.1 K/mm3 (0.7-4.5); Lymphocytes % 25.3 % (10-50); Mean Corpuscular Hemoglobin 31.7 pg (27.0-31.2); Mean Corpuscular Volume 99.8 fl (81-99); Mean Platelet Volume 10.9 fl (7.4-10.4); Monocytes % 4.6 % (1.7-9.3); Neutrophils # 5.6 K/mm3 (1.8-7.8); Neutrophils % 66.6 % (37.0-80.0); Platelet Count 104 K/mm3 (142-424); Red Blood Count 3.56 M/mm3 (4.20-5.40); Red Cell Distribution Width 13.7 % (11.5-17.5); White Blood Count 8.4 K/mm3 (4.8-10.8)
[2023-11-15 06:51] LABS: Hemoglobin 11.3 g/dL (12.2-16.2)
--- NOTE | 2023-11-15 09:47 | SW/DCPLANNER ---
Addendum entered by Luisa Young 11/20/23 07:27: Infant cord screen is positive. I will report this to CPS. Addendum entered by Luisa Young 11/15/23 13:23: Per Central Intake this case was assigned under alternative (up to 5 days to investigate). Addendum entered by Luisa Young 11/15/23 13:14: Per Central Intake this case does meet criteria for investigation. Original Note: I received a referral on this patient regarding: THC use during . Patient tested positive for THC on the following dates: 04/19/23, 09/21/23 and admission 11/14/23. 's urine drug screen was also positive for THC. female (Delia Li) was born on [birth year]. Infant's father (Bebeto Li 12/04/96) was present at the time of my visit. This is patient's second child (Juarez Stockton 02/10/19) and stated no past Social Service involvement. Patient, and Juarez will reside at [address] [place] [address]. Patient's contact number [phone]. Patient is currently established w/ WIC. Patient stated that she has the following items at home: crib, carseat, clothing, diapers and will be breast feeding. PED MD will be Dr Baldwin and patient stated they will have transportation to all follow up appointments. Per OB nursing staff patient is appropriate w/ infant. Expected discharge date is tomorrow 11/16/23. I have reported this case to Central Intake due to infant urine drug screen positive for THC. ID#[id number]
--- NOTE | 2023-11-15 10:08 | EXP.PN ---
Subjective *Date: 11/15/23 *Time: 10:08 Interval history: Palma Vaughan is a G4, P2022 postoperative day #1 following a repeat delivery at 39 weeks and 0 days gestation. was complicated by gestational thrombocytopenia, and a cystic fibrosis carrier. Routine delivery and course. She is doing well, sitting up in bed, and bonding with the baby this morning. -Reports pain is well-controlled -Reports she is tolerating p.o. without nausea or vomiting. -Reports her lochia is scant. -Desires to use the IUD for contraception -She is breast-feeding her female -Ambulating, voiding difficulty or dysuria. Denies chest pain shortness of breath or pain in her legs. No further complaints at this time. Exam Data for Last 24 hours Vital signs and Labs for Last 24 Hours: Temp Pulse Resp BP Pulse Ox O2 Del Method 98.3 F 58 L 17 98/53 L 98 Room Air 11/15/23 05:05 11/15/23 05:05 11/15/23 05:05 11/15/23 05:05 11/15/23 05:05 11/15/23 05:05 Laboratory Results - last 24 hr 11/14/23 06:12: Blood Type A Positive, Antibody Screen Negative 11/15/23 06:12: WBC 8.4, RBC 3.56 L, Hgb 11.3 L D, Hct 35.6 L, MCV 99.8 H, MCH 31.7 H, MCHC 31.8, RDW 13.7, Plt Count 104 L, MPV 10.9 H, Neut % (Auto) 66.6, Lymph % (Auto) 25.3, [place] % (Auto) 4.6, Eos % (Auto) 3.1, Baso % (Auto) 0.5, Neut # (Auto) 5.6, Lymph # (Auto) 2.1, [place] # (Auto) 0.4, Eos # (Auto) 0.3, Baso # (Auto) 0.0 I & O for Last 24 hours: Intake & Output 11/12/23 11/13/23 11/14/23 11/15/23 23:59 23:59 23:59 23:59 Intake Total 3125 / 3125 Output Total 1000 / 1000 Balance 5 / 212 Weight 184 lb Narrative: General: patient is alert oriented in no acute distress and responds appropriately to questions. Appears to be in minimal pain. HEENT: NCAT, EOMI, moist mucous membranes, neck supple with full ROM Cardiovascular: RRR +S1/S2, no murmurs or rubs Pulmonary: Clear to auscultation bilaterally, nonlabored breathing, symmetric chest rise Abdominal: Fundus below the umbilicus, firm, and tenderness appropriate for the period. Extremities: trace edema, no tenderness or cyanosis noted Skin: Normal turgor, intact, warm. Negative for erythema, pallor, petechia, or lesions. bandage in place this AM Neurologic: Negative for sensory or motor deficit Psychiatric: Normal affect, normal thought process, good judgment and insight, no depression or anxious mood appreciated. Assessment and Plan *Assessment and plan (1) Thrombocytopenia affecting , antepartum: Status: Acute Category: Medical Code(s): O99.119 - Other diseases of the blood and blood-forming organs and certain disorders involving the immune mechanism complicating , unspecified trimester; D69.6 - Thrombocytopenia, unspecified (2) Tetrahydrocannabinol (THC) use disorder, mild, abuse: Status: Acute Category: Medical Code(s): F12.10 - Cannabis abuse, uncomplicated (3) Tobacco use affecting in second trimester, antepartum: Status: Acute Category: Medical Code(s): O99.332 - Smoking (tobacco) complicating , second trimester (4) delivery delivered: Status: Acute Category: Medical Code(s): O82 - Encounter for delivery without indication Plan Stable. POD#1 s/p RCS -Doing well. VSS. Serial lochia and fundal checks. -Continue with perineal ice packs for discomfort -Hemoglobin: 13.6--> 11.3 -A+/antibody negative -, female -Contraception: IUD -Follow-up 2 weeks for routine visit -Dispo: home tomorrow pending mother/ status #Cystic fibrosis carrier -FOB was unable to be tested #Gestational thrombocytopenia -Platelets have remained above 100 throughout the . Morning of surgery they are 135 -POD#1: 104 #Rubella Non Immune -Roof Fixer and vaccinate
--- NOTE | 2023-11-15 10:39 | P.PNANES_ITS ---
[facility] Anesthesia Record Part II Anesthesia Record Part II Discharge Time: 08:59 Destination: Obstetric PACU nurse assessment reviewed?: Yes Patient Condition:: Good Anesthesia Complications:: None Swallowing reflex intact?: Yes Airway Patency: Patent Cyanosis?: No Blood Pressure: 100/56 SaO2: 98 Respiratory Rate: 16 Pulse Rate: 60 Temperature: 97.8 F Mental Status: Alert & Oriented Pain level:: 0 Nausea and/or vomitting:: None Intake, IV Amount: 0 Hydration: Adequate
[2023-11-15 10:40] VITALS: BP 100/56; PULSE 60; RESP 16; TEMP 36.6; O2SAT 98
[2023-11-16 08:20] VITALS: BP 109/66; PULSE 74; RESP 16; TEMP 36.8; O2SAT 99
--- NOTE | 2023-11-16 08:20 | EXP.DC.SUM ---
General Admission date:: 11/14/23 Discharge date: 11/16/23 HPI HPI HPI: POD # 2 s/p RLTCS Feeling well. Pain controlled. Breast feeding. Lochia is appropriate. Voiding without difficulty and passing flatus. Tolerating regular diet. Denies fever/chills, chest pain and shortness of breath. No headaches, vision changes, lightheadedness/dizziness. Trace bilateral lower extremity swelling. Ambulating well ad edna. Hospital Course Hospital Course Hospital Course: Palma Vaughan is a 23-year-old at 39 weeks and 0 days gestation who presented to labor and delivery for scheduled repeat . Her has been complicated by gestational thrombocytopenia, and a cystic fibrosis carrier. She has a history of a previous delivery and desires a repeat. On presentation patient endorsed good movement and denies any leakage of fluid or vaginal bleeding. She underwent repeat on 11/14/23. She delivered a live female baby, Opal Li, weighing 7 pounds 0 ounces. Apgars 8 and 9 at 1 and 5 minutes respectively. EBL 500 mL. She did well /postoperatively. Pain controlled. Breast feeding. Light lochia. Voiding without difficulty and passing flatus. Tolerating regular diet. Denies fever/chills, chest pain and shortness of breath. No headaches, dizziness/lightheadedness or vision changes. Vital signs stable, afebrile. Heart regular rate and rhythm. Lungs clear to auscultation. Abdomen soft, nontender. No lower extremity swelling. Ambulating well ad edna. Normal hospital course. She was discharged to home on POD # 2 with instructions to follow-up in the office in 2 weeks or sooner if needed. Exam Data for Last 24 hours Vital signs and Labs for Last 24 Hours: Temp Pulse Resp BP Pulse Ox O2 Del Method 98.3 F 58 L 16 98/53 L 98 Room Air 11/15/23 05:05 11/15/23 05:05 11/15/23 10:40 11/15/23 05:05 11/15/23 05:05 11/15/23 05:05 I & O for Last 24 hours: Intake & Output 11/13/23 11/14/23 11/15/23 11/16/23 23:59 23:59 23:59 23:59 Intake Total 3125 / 3125 0 / 0 Output Total 1000 / 1000 Balance 2125 / 2125 0 / 0 Weight 184 lb Constitutional Constitutional: no acute distress and cooperative *Routine HEENT Exam Head: Present normocephalic and atraumatic Eye: Absent conjunctivae pink ENT: Present mucous membranes moist *Routine Neck Exam Neck: Present full ROM *Routine Respiratory Exam Respiratory: Present CTA bilaterally and normal respiratory effort *Routine Cardiovascular Exam Cardiovascular: Present RRR *Routine Abdominal Exam Abdominal: Present soft and normoactive bowel sounds; Absent tenderness or distended Comments: Uterine fundus firm and below umbilicus, pfannenstiel incision clean/dry/intact *Routine Rectal Exam Patient deferred: visual exam *Routine Exam Patient deferred: external exam *Routine Extremities Exam Extremities: Present edema (trace bilateral lower extremity edema) and full ROM; Absent calf tenderness *Routine Neurological Exam Neurological: Present alert, moving all extremities and normal speech Routine Psychiatric Exam Psychiatric: Present normal affect and cooperative DS: Diagnosis Discharge Diagnosis (1) delivery delivered: Status: Acute Code(s): O82 - Encounter for delivery without indication (2) Thrombocytopenia affecting , antepartum: Status: Acute Code(s): O99.119 - Other diseases of the blood and blood-forming organs and certain disorders involving the immune mechanism complicating , unspecified trimester; D69.6 - Thrombocytopenia, unspecified (3) Tetrahydrocannabinol (THC) use disorder, mild, abuse: Status: Acute Code(s): F12.10 - Cannabis abuse, uncomplicated (4) Tobacco use affecting in second trimester, antepartum: Status: Acute Code(s): O99.332 - Smoking (tobacco) complicating , second trimester (5) An
== END 2023-11-16 11:05 | disposition home or self-care (01) | DRG 787 ==
PROVIDERS: Admitting Provider Obstetrics & Gynecology; PCP Family Medicine; Visit Provider Obstetrics & Gynecology
PROC: 10D00Z1 Extraction of Products of Conception, Low, Open Approach (ICD-10-PCS; CPT 59514; principal; 2023-11-14 07:30)
DX: O34.211 Maternal care for low transverse scar from previous cesarean delivery (principal); O99.12 Other diseases of the blood and blood-forming organs and certain disorders involving the immune mechanism complicating childbirth; D69.6 Thrombocytopenia, unspecified; O99.334 Smoking (tobacco) complicating childbirth; F12.10 Cannabis abuse, uncomplicated; Z14.1 Cystic fibrosis carrier; F17.210 Nicotine dependence, cigarettes, uncomplicated; N85.8 Other specified noninflammatory disorders of uterus; Z3A.39 39 weeks gestation of pregnancy; Z37.0 Single live birth
CPT/HCPCS: 59514; 36415; 59025; 80053; 80307; 81001; 85025; 86850; 94761; G0283; J1885; J2405; J7120